=== PATIENT | female | born 1950 | race Caucasian/White ===

== ENCOUNTER 2024-06-01 15:44 | Emergency (ER) | payer MEDICARE, SELFPAY ==
[2024-06-01 15:48] VITALS: PULSE 99; RESP 24; TEMP 37.3; O2SAT 99
[2024-06-01 15:56] VITALS: BP 128/63
--- NOTE | 2024-06-01 15:56 | W.ED.EXTPRO ---
HPI - Extremity Problem General: Chief complaint: Extremity Injury, Lower Stated complaint: right lower ext pain s/p fall Time Seen by Provider: 06/01/24 15:47 Source: patient Mode of arrival: EMS Limitations: no limitations History of Present Illness: Patient is a 74-year-old female brought in by ambulance for a fall just prior to arrival. Patient states she slipped on a rug, no symptoms prior, and this was a ground-level fall in which she injured her right lower extremity. At this time she is noting pain from her right knee all the way to her right ankle. EMS did give fentanyl on the way, as she was reporting 10/10 pain. At this time she notes she is starting to get some relief. She has no prior surgical history to the right lower extremity. No other injury suffered in the fall, specifically no head trauma or loss of consciousness. She has not been ambulatory since the incident. Vitals stable at this time. She is not endorsing any distal neurovascular issues. MD Complaint: extremity pain (RLE), joint swelling (right knee/ankle) and joint pain (right knee/ankle) Onset (ago): minute(s) Pain Consistency: constant Location: right and lower extremity Severity scale (1-10): 10 Exacerbating factors: range of motion Associated symptoms: Reports no associated symptoms; Deny chest pain, fever(s) or rash Related Data Allergies Allergy/AdvReac Type Severity Reaction Status Date / Time Sulfa (Sulfonamide Allergy Unknown Verified 06/01/24 15:54 Antibiotics) tetanus and diphtheria Allergy Unknown Verified 06/01/24 15:54 toxoids Review of Systems General: Reports: 10 or more systems reviewed and unremarkable except in HPI and below Const: Reports: other (fall); Denies: fever(s) or chills Card: Denies: chest pain Resp: Denies: dyspnea or productive cough GI: Denies: abdominal pain, nausea, vomiting or diarrhea : Denies: flank pain Musc: Reports: extremity pain (RLE), joint pain (RT knee/ankle) and joint swelling (RT knee/ankle); Denies: neck pain, back pain, extremity swelling, joint redness, joint warmth, limited range of motion or muscle weakness Skin/Breast: Denies: rash Neuro: Denies: headache(s), numbness in extremities or weakness in extremities Physical Exam Const: COMMON NORMALS: no acute distress, patient oriented x3, no limitations, healthy appearing, alert and well nourished HENMT: COMMON NORMALS: normocephalic and atraumatic HEAD & SCALP: normocephalic and atraumatic Neck/C-Spine: COMMON NORMALS: full ROM, supple and no meningeal signs Resp: COMMON NORMALS: normal respiratory effort, No use of accessory muscles and clear to auscultation bilaterally AUSCULTATION: clear to auscultation bilaterally Cardio: COMMON NORMALS: regular rate and regular rhythm RATE: regular rate RHYTHM: regular rhythm Extremity: NARRATIVE EXTREMITY EXAM: Right hip nontender to palpation. There is no significant reproducible tenderness to palpation of the right knee, right anterior vazquez, right calf, or right ankle joint. Does appear to be a moderate amount of swelling to the lateral and medial aspect of the right ankle, though she does have good posterior tibial and dorsalis pedis pulses. Distal sensations intact. No appreciable joint effusion in the knee. No obvious deformity or signs of trauma. Neuro: COMMON NORMALS: patient oriented x3, moves all extremities, no focal motor deficits and no sensory deficits noted SENSORIUM/ORIENTATION: Yes alert MENINGEAL SIGNS: Yes no meningeal signs Skin: COMMON NORMALS: no rashes or lesions noted GENERAL SKIN EXAM: no rashes or lesions noted Course Vital Signs: Vital signs: Vital Signs Temperature 99.1 F 06/01/24 15:48 Pulse Rate 99 06/01/24 15:48 Respiratory Rate 21 H 06/01/24 16:40 Blood Pressure 128/63 06/01/24 15:56 Pulse Oximetry 94 06/01/24 16:40 Oxygen Delivery Me thod Room Air 06/01/24 15:48 MDM - Extremity (Nontraumatic) Medical Decision Making Patient presented by ambulance for injury atraumatic to right knee down to the right ankle. No prior injuries to that leg. No obvious deformity on time of examination, though some swelling was noted to the ankle. X-ray did not show any acute abnormality, other than the joint effusion which I think probably needs pursued with an MRI as an outpatient. Patient was given fentanyl by ambulance, was given morphine here, and and still states that she was in pain. We will try Toradol and she is to follow-up with primary care on Monday or Monday for reevaluation and to arrange for MRI to evaluate for tendon/ligameninjury or tears. She will be given crutches to help with ambulation out of the emergency department, and did discuss rice therapy. Reasons to return discussed. Lab Data Radiology Impressions Tibia/Fibula X-Ray 06/01/24 16:07 IMPRESSION: 1. No acute osseous findings. 2. Moderate joint effusion. All radiology interpretation(s) finalized by discharge Discharge Plan Discharge Patient Disposition: Home Clinical Impression: Right knee sprain Qualifiers: Encounter type: initial encounter Involved ligament of knee: unspecified ligament Qualified Code(s): S83.91XA - Sprain of unspecified site of right knee, initial encounter Right ankle sprain Qualifiers: Encounter type: initial encounter Involved ligament of ankle: unspecified ligament Qualified Code(s): S93.401A - Sprain of unspecified ligament of right ankle, initial encounter Condition: Stable Discharge Orders: Discharge ED (Routine); Ordered 06/01/24 Ordered By: Brian Berrios Referrals: Yolie Enriquez MD [Family Provider] - Cassie Olsen MD [Primary Care Provider] - Discharge Diet: Usual diet Discharge Activity: Increase activity as tolerated Patient Instructions: Sprain (ED) Activity Restrictions/Additional Instructions: Gentle range of motion exercises as tolerated. Rest, ice, compression, and elevation. Tylenol and ibuprofen for pain relief. Weightbearing as tolerated. Follow-up with primary care provider and return with any new or worsening Coding Level of Care Code ED Delivery Crew Member for Scotty Jordan
--- NOTE | 2024-06-01 16:07 | XRR_ITS ---
PROCEDURE INFORMATION: Exam: XR Right Tibia and Fibula Exam date and time: 06/01/2024 4:21 PM Age: 74 years old Clinical indication: Knee and lower leg; Right; Patient HX: RT lower ext pain post fall; Deformity/attn to lateral RT knee; PT unable to straighten leg TECHNIQUE: Imaging protocol: Radiologic exam of the right tibia and fibula. Views: 2 views. COMPARISON: No relevant prior studies available. FINDINGS: Bones/joints: Moderate joint effusion. No definite acute fracture or dislocation. Soft tissues: Normal. XR/XR tibia fibula RT 2V [id number] IMPRESSION: 1. No acute osseous findings. 2. Moderate joint effusion.
[2024-06-01 16:40] VITALS: RESP 21; O2SAT 94
[2024-06-01] MEDS: morphine 4 mg/mL SDV 1 mL IVP (16:40)
[2024-06-01 19:00] VITALS: BP 137/69; PULSE 102; RESP 15; O2SAT 96
[2024-06-01] MEDS: ketorolac 30 mg/mL INJ IVP (19:18)
--- NOTE | 2024-06-01 20:00 | PC.NURSE ---
PT DECLINED CRUTCHES BECAUSE SHE HAS SOME AT HOME.
[2024-06-01 20:13] VITALS: BP 111/61; PULSE 104; RESP 14; O2SAT 95
== END 2024-06-01 20:11 | disposition home or self-care (01) ==
PROVIDERS: Emergency Provider Physician Assistant; Family Provider Family Medicine; PCP Family Medicine
DX: S83.91XA Sprain of unspecified site of right knee, initial encounter (principal); S93.401A Sprain of unspecified ligament of right ankle, initial encounter; W01.0XXA Fall on same level from slipping, tripping and stumbling without subsequent striking against object, initial encounter
CPT/HCPCS: 73590; 96374; 96375; 99284; J1885; J2270